=== PATIENT | male | born 1965 | race Caucasian/White ===

== ENCOUNTER 2024-08-07 08:11 | Emergency (ER) | payer BC, OTHER, SELFPAY ==
[2024-08-07 08:19] VITALS: BP 153/93
[2024-08-07 08:53] VITALS: BP 131/79
[2024-08-07 09:11] LABS: % Basophils 0.4 % (0-2); % Eosinophils 1.6 % (0-6); % Immature Granulocytes 0.3 % (0-0.5); % Lymphocytes 16.8 % (20.5-51.1); % Monocytes 9.7 % (1.7-9.3); % Neutrophils 71.2 % (42.2-75.2); Absolute Eosinophils 0.1 10^3/uL (0-0.7); Absolute Lymphocytes 1.1 10^3/uL (1.2-3.4); Absolute Monocytes 0.7 10^3/uL (0.1-0.6); Absolute Neutrophils 4.8 10^3/uL (1.4-6.5); Hematocrit 42.5 % (39.0-52.0); Mean Corp Hgb Conc. 35.3 g/dL (33.0-37.0); Mean Corpuscular Hgb 32.3 pg (27.0-31.0); Mean Corpuscular Volume 91.6 fL (80.0-94.0); Nucleated Red Blood Cells % 0 % (-); Platelet Count 214 10^3/uL (130-400); Red Blood Cell Count 4.64 10^6/uL (4.70-6.10); Red Cell Dist. Width 12.6 % (11.5-14.5); White Blood Cell Count 6.8 10^3/uL (4.8-10.8)
--- NOTE | 2024-08-07 09:11 | ED.GENMED ---
History of Present Illness
General
Chief Complaint: Chest Pain
Source: patient
Exam Limitations: none
Time Seen by Provider: 08/07/24 09:06
Nursing documentation reviewed up to this point in time: agreed with
History of Present Illness
History of Present Illness:
This is a 59-year-old male with past medical history of hypothyroidism, prostatic hypertrophy, who presents emergency department today with concerns of chest pain for the past 6 days. Patient reports that it started while he was at work 1 day.
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 He reports that his pain is on the left side of his chest and radiates into the left shoulder. Patient reports that feels like he
has a muscle tear but in light of the location near the chest, he does want to come in for further evaluation. He denies shortness of breath, dizziness, lightheadedness. He denies paresthesias in his upper or lower extremities. Denies any
syncopal episodes. He denies any fevers or chills, abdominal pain, nausea or vomiting. He states that yesterday while he was at work, he had an episode of diaphoresis associated with the pain which concerned him. Patient has no personal history
of cardiac disease, has no family history of cardiac disease, has never been evaluated by enlisted advisor. Patient denies any recent long distance travel. Patient has not taken anything for the pain because it has been a 2/10 in severity.
Review of Systems
Review of Systems
All Other Systems: ROS reviewed and negative except as documented in HPI and ROS
Phy Exam
Physical Exam
Physical Exam:
General: Patient is well appearing and in no acute distress; non-toxic
Skin: Warm and dry, no rashes or lesions
Head: Normocephalic, atraumatic
Eyes: Sclera non-icteric. EOMs intact.
Cardiac: Regular rate and rhythm, no murmurs. Mild tenderness to palpation of the left external chest wall
Peripheral Vascular: Equal radial pulses bilaterally
Pulm: Normal respiratory effort, no wheezes, rales, rhonchi
Abdomen: No abdominal tenderness to palpation
Musculoskeletal: No left shoulder pain with full passive ROM, no palpable bony deformities
Neuro: CN II-XII intact, no focal neurologic deficits.
Psychiatric: Appropriate mood and affect.
Scores
Heart Score for Chest Pain Patients
STEMI patient?: No
History: Slightly or Non-Suspicious
ECG: Normal
Age: >45 - <65 years
Risk Factors: No Risk Factors
Troponin: </= Normal Limit
Heart Score for Chest Pain Patients: 1
Heart Score Risk: 2.5% MACE over next 6 weeks
Course
Orders/Labs/Results
Orders:
Orders
08/07/24 08:18
Electrocardiogram (*1) Urgent
Reason for Study: Chest Pain
EKG- Treatment ONCE
08/07/24 09:04
Complete Blood Count/With Diff Urgent
Comprehensive Metabolic Panel Urgent
Lipase Urgent
Troponin I Urgent
08/07/24 09:20
Add On- LAB Urgent
Tests Added?: lipase
CR Chest - 2 Views Urgent
Comment:
Reason For Exam: left sided chest pain
Abnormal Lab Results
08/07/24
09:04
RBC 4.64 L 10^6/uL
(4.70-6.10)
MCH 32.3 H pg
(27.0-31.0)
Absolute Lymphs (auto) 1.1 L 10^3/uL
(1.2-3.4)
Absolute Monos (auto) 0.7 H 10^3/uL
(0.1-0.6)
Lymphocytes % 16.8 L %
(20.5-51.1)
Monocytes % 9.7 H %
(1.7-9.3)
Glucose 112 H mg/dl
(70-99)
08/07/24 09:04
08/07/24 09:04
Vital Signs
Initial and Last Documented VS:
Initial Vital Signs
Temp Pulse Resp BP Pulse Ox
98.6 F 70 20 153/93 95
08/07/24 08:19 08/07/24 08:19 08/07/24 08:19 08/07/24 08:19 08/07/24 08:19
Last Documented Vital Signs
Temp Pulse Resp BP Pulse Ox
98.6 F 72 15 135/85 97
08/07/24 08:19 08/07/24 09:30 08/07/24 09:30 08/07/24 10:01 08/07/24 10:00
MDM/Problems Addressed
Differential Diagnosis Includes:
ddx include ACS, costochondritis, muscle strain, GERD
MDM/Problems Addressed:
This is a 59 y/o male who presents to the emergency department today with concerns of chest pain for the past 6 days. 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 Currently pain is a 2/10. He has no
personal or family history of cardiac disease. His CBC and CMP are unremarkable. His CXR shows mild scarring in the peripheral LLL but no evidence of pneumonia or pneumothorax, no evidence of widened mediastinum. Troponin undetectable. Considering
patient's pain has been going on constantly for multiple days, no indication for repeat troponin at this time, doubt ACS. 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
suspect send pectoris or biceps/deltoid muscle strain. Doubt dissection considering no neurologic symptoms and equal radial pulses bilaterally. Doubt PE considering no risk factors and no shortness of breath with stable vitals. Patient stable for
discharge. Advise follow-up with cardiology for initial evaluation. Patient stable for discharge.
Chronic conditions affecting care:
hyperthyroidism, BPH
*Pulse Oximetry
Patient hypoxic: no
*EKG
Interpreted by ED Provider?: Yes
EKG Intrepretation Date: 08/07/24
Interpretation: normal
Comparison EKG: no comparison EKG present
Heart Rate: 67
Rate: normal
Rhythm: sinus
[place]: normal axis
Interval: normal interval
Ischemia: no ischemia
*Critical Care Note
Total Time (30-74mins, 75-104mins- exclusive of procedures): Not Applicable
Data Reviewed
Review of Other/Old Records Reveals: Records
ED Attending Note
-
Portions of this chart may have been created with voice recognition software.� Occasional wrong word or��sound alike� substitutions may have occurred due to the inherent limitations of voice recognition software.
Discharge Plan
Departure
Patient Disposition: Home (Routine Discharge)
Date of Disposition: 08/07/24
Time of Disposition: 10:24
Patient with high blood pressure during this ER visit?: Yes
Condition: Good
Discharge Problem:
Chest pain, Shoulder pain
Instructions: BLOOD PRESSURE, Chest Pain
Referrals:
Jose Argueta MD [Active] - Call in 1-3 days for appt
Duarte Aggarwal MD [Family Provider] -
Activity Restrictions/Additional Instructions:
Please continue to monitor your symptoms.
Please follow-up with your primary care provider.
Please call attached number to schedule appointment for evaluation by enlisted advisor.
PLEASE RETURN EMERGENCY DEPARTMENT SHOULD YOU DEVELOP AN ACUTE WORSENING OF YOUR SYMPTOMS, SHORTNESS OF BREATH, DIZZINESS, FAINTING SPELLS, PAIN RADIATING THROUGH THE BACK, WEAKNESS ONE-SIDED BODY VERSUS OTHER, ANY OTHER SIGNS OR SYMPTOMS WORRISOME
TO YOU.
Interventions
Interventions:
*Risk Screen - Suicide Last Done: 08/07/24 08:19
*General Assessment Last Done: 08/07/24 08:19
*Neglect/Abuse Screening Last Done: 08/07/24 08:19
*ED- Fall Risk Assessment Last Done: 08/07/24 08:54
*ED COVID-19 Vaccine History Last Done: 08/07/24 08:54
*Nursing Disposition Last Done: 08/07/24 10:30
ED- Cardiac Assessment Last Done: 08/07/24 08:54
Discharge Date and Time
Discharge Date/Time: 08/07/24 10:36
Print Language: CITIZEN OF [place]
[2024-08-07 09:26] LABS: ALT (SGPT) 27 U/L (0-50); AST (SGOT) 30 U/L (17-59); Albumin 4.1 g/dl (3.5-5.0); Alkaline Phosphatase 112 U/L (38-126); Blood Urea Nitrogen 13 mg/dl (9-20); Calcium 9.2 mg/dl (8.4-10.2); Carbon Dioxide 26 mmol/L (22-30); Chloride 104 mmol/L (98-107); Glucose 112 mg/dl (70-99); Potassium 4.5 mmol/L (3.5-5.1); Sodium 138 mmol/L (135-145); Total Bilirubin 0.6 mg/dl (0.2-1.3); Total Protein 7.5 g/dl (6.3-8.2); eGFR > 60.00
[2024-08-07 09:54] LABS: Troponin I < 0.012 ng/ml
[2024-08-07 10:01] VITALS: BP 135/85
[2024-08-07 10:43] LABS: Lipase 94 U/L (23-300)
== END 2024-08-07 10:36 | disposition home or self-care (01) ==
LOC: EMR 08:11
PROVIDERS: EMERGENCY PHYSICIAN Emergency Medicine; FAMILY PHYSICIAN Family Medicine
DX: R07.89 Other chest pain (principal); M25.512 Pain in left shoulder; E03.9 Hypothyroidism, unspecified; N40.0 Benign prostatic hyperplasia without lower urinary tract symptoms
CPT/HCPCS: 99285; 71046; 80053; 83690; 84484; 85025; 93005

== ENCOUNTER 2024-11-21 06:23 | Day surgery (SDC) | payer BC, OTHER, SELFPAY ==
[2024-11-12 11:46] LABS: Hematocrit 44.8 % (39.0-52.0); Hemoglobin 15.4 g/dL (13.0-18.0); Mean Corp Hgb Conc. 34.4 g/dL (33.0-37.0); Mean Corpuscular Volume 93.9 fL (80.0-94.0); Platelet Count 236 10^3/uL (130-400); Red Cell Dist. Width 12.4 % (11.5-14.5)
[2024-11-12 14:19] VITALS: BMI 30.7
[2024-11-12 14:34] LABS: Blood Urea Nitrogen 13 mg/dl (9-20); Calcium 9.0 mg/dl (8.4-10.2); Carbon Dioxide 23 mmol/L (22-30); Chloride 108 mmol/L (98-107); Estimated Creatinine Clearance > 125 ml/min; Glucose 98 mg/dl (70-99); Potassium 4.4 mmol/L (3.5-5.1); Sodium 142 mmol/L (135-145); eGFR > 60.00
[2024-11-21] VITALS (8 sets, daily range): BP systolic 115–147; BP diastolic 70–93; BMI 30.7
[2024-11-21] MEDS: TYLENOL 1000 MG PO (08:20)
[2024-11-21] MEDS: NORMOSOL-R/PLASMALYTE-A 1000 IV (08:21)
[2024-11-21] MEDS: DILAUDID 0.25 MG IV (11:27)
== END 2024-11-21 12:30 | disposition home or self-care (01) ==
LOC: SDS 06:23
PROVIDERS: ATTENDING PHYSICIAN Surgery; FAMILY PHYSICIAN Family Medicine
DX: K42.9 Umbilical hernia without obstruction or gangrene (principal)
CPT/HCPCS: 49591; 36415; 80048; 85027; 93005; C1781